=== PATIENT | female | born 1945 | race Caucasian/White ===

== ENCOUNTER 2025-04-20 11:29 | Emergency (ER) | payer MEDICARE, BC ==
[~2025-04-20] VITALS: Ht 170.2 cm; Wt 61.6 kg
[2025-04-20] MEDS: famotidine 20mg tablet PO ONE (12:47)
[2025-04-20] MEDS: diphenhydrAMINE 25mg capsule PO ONE (12:48)
--- NOTE | 2025-04-20 12:50 | Physician Documentation ---
History of Present Illness ~ Chief Complaint: Rash Stated Complaint: RASH Time Seen by MD: 12:35 HPI 79-year-old female returns to this ED for ongoing complaints of a rash that is resistant to treatment. She was seen at [facility] for this rash and given 60 mg of Kenalog. She states after the shot her rash actually got worse. The only medication she takes are MiraLax and vitamin D3 Denies any recent antibiotic usage he has fevers reports that the rash is itchy. States that the rash has gotten all over face and torso. She is does add that she has been evaluated for IBS symptoms. She does not have any history of any immune compromise issue Day of Onset: April 20, 2025 Medication Reconciliation Allergies: Coded Allergies: No Known Allergies (Unverified , 04/20/25) Review of Systems All Other Systems at this time: Reviewed and Negative ROS As stated above in the HPI, otherwise all systems are reviewed and negative. Physical Exam Vital Signs: Heart Rate: 69, Respiratory Rate: 16, BP: 133/70, Pulse Oximetry: 98, Weight: 61.650 Oxygen Flow Rate: 0 Physical Exam General: Alert, no apparent distress. HEENT: PERRL, EOMI, no injection, moist mucous membranes. Neck: Full range of motion. Respiratory: Lungs clear, no respiratory distress. Chest: No accessory muscle use. Cardiovascular: Regular rate and rhythm, no murmurs. Gastrointestinal: Soft, nontender, nondistended. Bowels sounds present. Extremities: Normal range of motion, no deformity. Neurologic: Oriented x4. Psychiatric: Normal mood and affect. Skin: Diffuse rash on both cheeks and chin, rash evident all over torso and legs., non- bolus, non painful Progress Results/Orders Results/Orders Orders - THAI RODRIGUEZ VACUUM PAN OPERATOR ESR (04/20/25 12:35) Completed Orders - THAI RODRIGUEZ VACUUM PAN OPERATOR Diphenhydramine Capsule (Benadryl Capsul (04/20/25 12:35) Famotidine Tablet (Pepcid Tablet) (04/20/25 12:35) Epinephrine Inj (Adrenalin Inj) (04/20/25 12:35) Cbc/Diff (04/20/25 12:35) C-Reactive Protein (04/20/25 12:35) Medications Received in ER Medications (Trade) Dose Ordered Sig/Ronny Route PRN Reason Start Time Stop Time Status Last Admin Dose Admin (Benadryl capsule) 50 mg ONCE ONCE PO 04/20/25 12:35 04/20/25 12:41 DC 04/20/25 12:48 50 MG (Pepcid tablet) 20 mg ONCE ONCE PO 04/20/25 12:35 04/20/25 12:41 DC 04/20/25 12:47 20 MG (Adrenalin inj) 0.3 mg ONCE STAT SQ 04/20/25 12:35 04/20/25 12:41 DC 04/20/25 12:51 0.3 MG Vital Signs 04/20/25 04/20/25 11:38 13:05 Pulse 69 57 Resp 16 16 B/P (MAP) 133/70 121/56 (77) Pulse Ox 98 98 O2 Flow Rate 0 0 Laboratory Tests Test 04/20/25 13:04 White Blood Count 5.7 Red Blood Count 4.79 Hemoglobin 13.8 Hematocrit 41.3 Mean Corpuscular Volume 86.1 Mean Corpuscular Hemoglobin 28.9 Mean Corpuscular Hemoglobin Concent 33.6 Red Cell Distribution Width 13.8 Platelet Count 203 Mean Platelet Volume 9.3 Neutrophils (%) (Auto) 63.1 Lymphocytes (%) (Auto) 22.0 Monocytes (%) (Auto) 8.2 Eosinophils (%) (Auto) 6.3 H Basophils (%) (Auto) 0.4 Neutrophils # (Auto) 3.6 Lymphocytes # (Auto) 1.2 Monocytes # (Auto) 0.5 Eosinophils # (Auto) 0.4 Basophils # (Auto) 0.0 CBC Comment C-Reactive Protein 0.68 H Medical Decision Making Findings Dre. Fitzgerald personally evaluated pt. advisded h1 and h2 blockers and epinephrine SQ This patient I was more concerned about potentially an immune response secondary to her reported concerns over having IBS. CRP was only mildly elevated. After receiving H2 and H1 blockers along with a subcu epinephrine her symptoms mostly resolved. He had advised the patient that she likely had some sort of the allergic reaction she will need to avoid this allergen in order to prevent further exacerbation. I also educated on her getting an allergy panel to discovered what she is allergic to via her primary care Differential Dx:Considerations: Include: Abscess, AIDS/HIV, Anthrax (cutaneous), Atopic dermatitis, Candidiasis, Contact dermatitis, Drug reaction, Erythema multiforme, Erysipelas, Gangrene, Herpes zoster, Herpes simplex, Hidradenitis suppurativa, Impetigo, Intertrigo, Lymes disease, Molluscum contagiosum, Osteomyelitis, Pediculosis, Pityriasis rosea, Psoriaisis, RMSF, Rosacea, Scabies, Scarlet fever, Tinea, Urticaria, Varicella, Viral exanthema, Other Departure Disposition: 01 HOME / SELF CARE / HOMELESS Impression: Primary Impression: Urticaria Additional Impression: Allergic urticaria Discharge Instructions: Drug Allergy, Pruritus Referrals: NO PRIMARY CARE PROVIDER (PCP) Education Educated: Patient Educated regarding: diagnosis Signature Scribe Signature: c Attestation: The note accurately reflects work and decisions made by me.Thai Stroud NP 04/20/25 12:45 THAI RODRIGUEZ NP April 20, 2025 12:50
[2025-04-20] MEDS: epiNEPHrine 1 mg/ml inj SQ STA (12:51)
[2025-04-20 13:19] LABS: BASOPHILS % (AUTO) 0.4 % (0-1); EOSINOPHILS # (AUTO) 0.4 X10'3 (0-0.9); EOSINOPHILS % (AUTO) 6.3 % (0-6); HEMATOCRIT 41.3 % (35.0-45.0); HEMOGLOBIN 13.8 g/dl (12.0-16.0); LYMPHOCYTES # (AUTO) 1.2 X10'3 (1.1-4.8); MEAN CORPUSCULAR HEMOGLOBIN 28.9 PG (27.0-31.0); MEAN CORPUSCULAR HGB CONC 33.6 g/dL (33.0-36.5); MEAN CORPUSCULAR VOLUME 86.1 FL (78-98); MEAN PLATELET VOLUME 9.3 FL (7.4-10.4); MONOCYTES # (AUTO) 0.5 X10'3 (0-0.9); MONOCYTES % (AUTO) 8.2 % (2-12); NEUTROPHILS # (AUTO) 3.6 X10'3 (1.8-7.7); NEUTROPHILS % (AUTO) 63.1 % (42-75); PLATELET COUNT 203 X10'3 (140-440); RED BLOOD COUNT 4.79 X10'6 (4.20-5.60); RED CELL DISTRIBUTION WIDTH 13.8 % (11.5-14.5); WHITE BLOOD COUNT 5.7 X10'3 (4.5-11.0)
[2025-04-20 14:00] VITALS: BP 121/56; PULSE 62; RESP 16; TEMP 98.2; O2SAT 100
[2025-04-21] MEDS ORDERED: FAMO40TA7 PO (12:58)
[2025-04-21] MEDS ORDERED: HYDR-3686 PO (12:58)
[2025-04-21] MEDS ORDERED: EPIN0.3A3 IM (12:58)
[2025-04-21] MEDS ORDERED: PRED20TA PO (12:58)
== END 2025-04-20 14:01 | disposition home or self-care (01) ==
LOC: ER 11:30
DX: L50.0 Allergic urticaria (principal)
CPT/HCPCS: 36415; 85025; 85651; 86140; 96372; 99283; J0171; Q0163

== ENCOUNTER 2025-04-21 11:56 | Emergency (ER) | payer MEDICARE, BC ==
[~2025-04-21] VITALS: Ht 170.2 cm; Wt 54.0 kg
[2025-04-21 12:06] VITALS: BP 126/61; PULSE 63; RESP 16; O2SAT 99
--- NOTE | 2025-04-21 12:15 | Physician Documentation ---
History of Present Illness ~ Chief Complaint: Rash Stated Complaint: SWELLING IN FACE Time Seen by MD: 12:14 HPI This is a 79-year-old female who returns to the emergency department due to concerns for ongoing issues with widespread rash and itching. Was seen here yesterday, given intramuscular epinephrine, famotidine, and told to take Claritin. History of Kenalog injection at a local urgent care couple of days ago. She denies any difficulty swallowing or breathing. She denies throat or chest tightness. Unknown cause of allergic reaction, and has never had this before. Medication Reconciliation Allergies: Coded Allergies: No Known Allergies (Unverified , 04/21/25) Scheduled Epinephrine (Epinephrine), 1 SYR IM ONCE Famotidine (Famotidine), 1 TAB PO DAILY Prednisone* (Prednisone*), 1 TAB PO DAILY Scheduled PRN Hydroxyzine Hcl* (Atarax*), 1 TAB PO Q8H PRN for ITCHING Review of Systems ROS As stated above in the HPI, otherwise all systems are reviewed and negative. Physical Exam Vital Signs: Temperature: 97.3, Source: Temporal, Heart Rate: 63, Respiratory Rate: 16, BP: 126/61, Pulse Oximetry: 99, Weight: 54.000 Oxygen Flow Rate: 0 Physical Exam General: Alert, no apparent distress. HEENT: PERRL, EOMI, no injection, moist mucous membranes. Uvula visible midline. No posterior pharyngeal eryhema. Airway patent. Neck: Full range of motion. Respiratory: Lungs clear, no respiratory distress. Chest: No accessory muscle use. Cardiovascular: Regular rate and rhythm, no murmurs. Gastrointestinal: Soft, nontender, nondistended. Bowels sounds present. Extremities: Normal range of motion, no deformity. Neurologic: Oriented x4. Psychiatric: Normal mood and affect. Skin: Wide spread erythematous rash noted, pruritic per patient report. Progress Results/Orders Results/Orders Vital Signs 04/21/25 04/21/25 12:06 13:04 Temp 97.3 97.3 Pulse 63 Resp 16 B/P (MAP) 126/61 Pulse Ox 99 O2 Flow Rate 0 Medical Decision Making Additional Comment This is a 79-year-old female who was seen yesterday and treated for widespread allergic reaction. Dr. Fitzgerald was here yesterday, and did see the patient. He re-evaluated her again today. Feels that she is slightly improved. Agrees with the plan of sending her home on famotidine, adding hydroxyzine a top her Claritin, and making an EpiPen available to her. She is instructed to follow up with primary care and request a referral to blower installer. Discussed what would make her come back, and that has difficulty breathing or swallowing, throat or chest tightness. Departure Time of Disposition: 12:56 Impression: Primary Impression: Urticaria Condition: Stable Discharge Instructions: Epinephrine Auto-Injector, Lars Additional Instructions: Please take the medications as prescribed for the next week or two until you see your primary care provider. Continue Claritin or Zyrtec daily. Add hydroxyzine every 8 hrs as needed for additional itching/swelling. This replaces benadryl and is like a stronger prescribed version of benadryl. It will make you drowsy, so may be best reserved for use just at night. Return immediately for difficulty breathing, difficulty swallowing, or other concerns that you were markedly worse rather than better. You would benefit from a referral to an blower installer. Referrals: NO PRIMARY CARE PROVIDER (PCP) Prescriptions Prednisone* (Prednisone*) 20 Mg Tablet 1 TAB PO DAILY for 5 Days, #5 TAB Prov: HENRIK CHAWLA NP 04/21/25 Hydroxyzine Hcl* (Atarax*) 25 Mg Tablet 1 TAB PO Q8H PRN for ITCHING for 10 Days, #30 TAB Prov: HENRIK CHAWLA NP 04/21/25 Epinephrine (Epinephrine) 0.3 Mg/0.3 Ml Auto.injct 1 SYR IM ONCE for anaphylaxis for 1 Day, #0.6 ML 0 Refills Prov: HENRIK CHAWLA NP 04/21/25 Famotidine (Famotidine) 40 Mg Tablet 1 TAB PO DAILY for 30 Days, #30 TAB 0 Refills Prov: HENRIK CHAWLA NP 04/21/25 Education Educated: Patient, Family Educated regarding: diagnosis, treatment, prognosis, need for follow up Signature Scribe Signature: no scribe Attestation: The note accurately reflects work and decisions made by me.Henrik Stroud NP 04/21/25 13:11 HENRIK CHAWLA NP Apr 21, 2025 12:15
[2025-04-21] MEDS ORDERED: PRED20TA PO (12:58)
[2025-04-21] MEDS ORDERED: HYDR-3686 PO (12:58)
[2025-04-21] MEDS ORDERED: EPIN0.3A3 IM (12:58)
[2025-04-21] MEDS ORDERED: FAMO40TA7 PO (12:58)
[2025-04-21 13:04] VITALS: TEMP 97.3
== END 2025-04-21 13:05 | disposition home or self-care (01) ==
LOC: ER 11:57
DX: L50.9 Urticaria, unspecified (principal)
CPT/HCPCS: 99283